=== PATIENT | male | born 1955 | race Caucasian/White ===

== ENCOUNTER 2017-03-05 05:06 | Observation (INO) | payer MEDICARE, OTHER ==
[2017-03-05] VITALS (11 sets, daily range): BP systolic 147–180; BP diastolic 85–119; PULSE 52–72; RESP 16–20; O2SAT 94–99
[~2017-03-05] VITALS: Ht 188 cm; Wt 137.2 kg
[2017-03-05] MEDS ORDERED: Polyethylene Glycol (PEG) 17 Gm Powder PO PRN ×2 (06:00→08:25)
[2017-03-05] MEDS ORDERED: Alum-Mag Hydrox-Simeth 30 mL Suspension PO PRN ×2 (06:00→08:25)
[2017-03-05] MEDS ORDERED: Ondansetron 2 mg/mL 2 mL Inj IVPUSH PRN ×2 (06:00→08:25)
--- NOTE | 2017-03-05 06:29 | NUR ---
Admit Patient admitted to [facility] at 0530. A&Ox3, DELMI, reporting chronic generalized pain for which he takes medical marijuana at home. Patient also reporting a new onset chest and upper back discomfort that he associates with his a-fib. Tele: a-fib with ventricular rates 50-60s. Admit documentation completed; patient denies home meds other than "medical marijuana and ibuprofen."
[2017-03-05 06:47] LABS: BASOPHILS % (AUTO) 0.2 % (0-3); EOSINOPHILS % (AUTO) 0.3 % (0-5); MONOCYTES % (AUTO) 10.5 % (4-12); Mean Corpuscular Hemoglobin 30.4 pg (27.0-35.0); Mean Corpuscular Volume 87.2 fL (81-100); NEUTROPHILS % (AUTO) 75.9 % (40-74); Platelet Count 172 bil/L (150-400)
[2017-03-05 07:10] LABS: Magnesium 2.1 mg/dL (1.6-2.6); TROPONIN T 0.023 ug/L (0.0-0.011)
[2017-03-05] MEDS: Heparin 5,000 Unit/mL Inj SUBQ SCH ×2 (08:59→17:14)
[2017-03-05] MEDS: HYDROcodone-APAP 5-325 mg Tablet PO PRN ×2 (08:59→19:55)
[2017-03-05 09:55] LABS: TROPONIN T 0.022 ug/L (0.0-0.011)
--- NOTE | 2017-03-05 12:30 | DRSVH ---
[facility] [address] [place] [address] Echocardiogram Report Name: ANNA SCHMID WStudy Date: 03/05/2017 Height: 74 in Hospital Exam Location: [facility] Weight: 355 lb Gender: Male BSA: 2.8 m2 : 1955 Age: 61 yrs BP: 175/106 mmHg Reason For Study: Atrial fibrillation Ordering Physician: HOSPITALIST SVerformed By: Peyman Vee Referring Physician: JOAQUIM REYNA Interpretation Summary Left ventricular wall thickness is mildly increased. Left ventricular systolic function is normal without focal wall motion abnormalities. The ejection fraction is estimated to be 55-60%. Septal motion is consistent with conduction abnormality. The right ventricle grossly appears normal in size with probable normal systolic function. The right ventricular systolic pressure is estimated at 29 mmHg assuming a right atrial pressure of 8 mm Hg. The left atrium is moderately dilated. Right atrial size is normal. There is no significant valvular heart disease. The ascending aorta is moderately enlarged. The aortic arch is at the upper limits of normal in size. Procedure: A two-dimensional transthoracic echocardiogram with color flow and Doppler was performed. The study quality was technically difficult. A contrast injection of Definity was performed to improve assessment of LV function. There is no prior echocardiogram noted for this patient. The patient was in atrial fibrillation with heart rates between 50-58 bpm during the exam. Left Ventricle: The left ventricle is normal in size. Left ventricular wall thickness is mildly increased. Left ventricular systolic function is normal without focal wall motion abnormalities. The ejection fraction is estimated to be 55-60%. Septal motion is consistent with conduction abnormality. Diastolic function could not be accurately assessed due to atrial fibrillation. Right Ventricle: The right ventricle grossly appears normal in size with probable normal systolic function. Atria: The left atrium is moderately dilated. Right atrial size is normal. The interatrial septum is intact with no evidence for an atrial septal defect. Mitral Valve: The mitral valve is grossly normal. There is trace mitral regurgitation. Aortic Valve: The aortic valve is not well visualized. There is no hemodynamically significant valvular aortic stenosis. No aortic regurgitation is present. Tricuspid Valve: The tricuspid valve is not well visualized, but is grossly normal. There is mild tricuspid regurgitation. The right ventricular systolic pressure is estimated at 29 mmHg assuming a right atrial pressure of 8 mm Hg. Pulmonic Valve: The pulmonic valve is not well visualized. There is no significant valvular heart disease. Great Vessels: The aortic root is normal size. The ascending aorta is moderately enlarged. The aortic arch is at the upper limits of normal in size. The pulmonary artery is not well visualized, but is probably normal size. The IVC is dilated (diameter is greater than 2.1 cm) yet it collapses greater than 50% with a sniff. This suggests a right atrial pressure of 8 mm Hg. Pericardium/ Pleura There is no pericardial effusion. There is no pleural effusion. MMode/2D Measurements & Calculations LVIDd: 5.7 cm RA long axis Ao root diam LVIDs: 4.1 cm LA A2 area: 27.5 cm FS: 27.3 % LA A4 area: 39.1 cm RA area asc Aorta Diam EPSS: 0.55 cm LA length (vol) IVSd: 1.2 cm : 22.5 cm Ao Arch Diam (Prox LVPWd: 1.2 cm LA vol: 115.7 ml RA vol Trans): 3.4 cm LA vol index : 63.3 ml RA : 22.8 mm2 IVC diam: 2.4 cm LV dow. diameter/BSA LV sys. diameter/BSA (cm/m^2): 2.1 (cm/m^2): 1.5 Doppler Measurements & Calculations Ao V2 max MV E max carlos TR max carlos Ao V2 mean : 136.2 cm/sec : 89.6 cm/sec : 226.6 cm/sec : 96.4 cm/sec Ao max P.4 mmHg TR max PG Ao V2 VTI: 25.1 cm Ao mean P.1 mmHg : 20.6 mmHg LVOT Max Carlos : 108.5 cm/sec sev ratio: 0.75 LV V1 max PG LV V1 VTI: 18.9 cm Reading Physician:SUSANA
--- NOTE | 2017-03-05 15:45 | PCM.HPMED ---
Subjective Date of Service Mar 05, 2017 Primary Provider: Admitting Physician: Taylor Stevenson DO Primary Care Physician: Zion Rios MD Attending Physician: Joel Portillo MD Admit Status: Direct Admit, 23-Hour Observation, [facility] Telemetry Chief Complaint: Bradycardia History of Present Illness: This is a pleasant 61-year-old gentleman with a fairly unremarkable past history who is a blood pressure machine that he uses at home to monitor blood pressure. He is on no blood pressure medications. This machine also gives a heart rate. The patient presented to the ER because of acute on chronic entire body pain which relates to muscle skeletal pain which she attributes to his long history of heavy labor. The patient also came in because of her bradycardia. He saw a low number on his machine. He did not have any other symptoms including lightheadedness, palpitations, or syncope. He is otherwise been in his normal health recently and denies any dehydration, nausea, vomiting , diarrhea. His by mouth intake has been about normal. A cascade in the emergency department he was found to be bradycardic and in atrial fibrillation. It is unclear and unknown if his atrial fibrillation is chronic. The patient initially had a heart rate of 42. This did increase to about 60 with ambulation. His other vital signs were normal in the ER including a blood pressure of 137/80. Review of Systems: All else reviewed and otherwise unremarkable except as noted in history of present illness Allergies Coded Allergies: penicillin (Verified Allergy, Unknown, rash, and break out, 05/05/15) Home Medications None PMH Obesity Chronic back pain Chronic shoulder and lower extremity pain. Family History Negative for atrial fibrillation. His father did have coronary artery disease and multiple myocardial infarctions. Social History Occupation: retired Hx Alcohol Use: No Hx Substance Use: No (medical cannabis) Smoking Status: Unknown if Ever Smoker Living Arrangement: with Family Additional Information Uses recreational marijuana Exam Vital Signs Vital Sign - Last Date Time Temp Pulse Resp B/P Pulse Ox O2 Delivery O2 Flow Rate FiO2 03/05/17 12:26 36.7 52 18 172/91 97 Room Air Exam Oriented 3. No distress. Fluent speech. Normal affect. Normal skull. Normal nose and ears. Anicteric sclera, symmetric pupils Oropharynx is unremarkable, no facial droop. Neck is supple, normal thyroid. No adenopathy. Lungs are clear, normal effort rate. Heart is regular without murmur gallop or rub. Abdomen soft, nondistended or tender. Extremities are free of pedal edema. Good radial and pedal pulses. Skin is free of rash, lesions. No petechiae or ecchymosis. Joints are grossly normal. He is a limited range of motion both shoulders and has a lot of repositioning in the hospital bed due to chronic back pain. Cranial nerves are grossly normal. Motor strength is normal in all extremities. Normal muscular tone. Lab and Diagnostics Result Diagram: 03/05/1761203/05/17612 Assessment & Plan #. Atrial fibrillation with bradycardia, POA. The chronicity of this is unclear. The patient's review of his blood pressure device indicates progressive bradycardia over last several months. He is not in any medications that could rate block him. He also does have a left bundle branch block. Plan is to admit observation status and observe his rate and rhythm over the next 24 hours. We will further consult with cardiology pending the results of his telemetry. #. Acute on chronic muscular skeletal pain, POA. We will use Vicodin as needed for pain. Patient is full resuscitation, confirmed the time of admit Patient is admitted observation status with an estimated length of stay of one night. Pain Evaluation: Adequate Pain Control Resuscitation Status: CPR: Attempt Resuscitation Time spent 40 minute Joel Portillo MD Mar 05, 2017 15:45
[2017-03-05] MEDS: 0.9% Sodium Chloride 1,000 ML IV SCH (17:13)
--- NOTE | 2017-03-05 19:41 | NUR ---
BP Pt's BP 175/106 this am, Pt in pain at the time, MD made aware who placed PRN orders for pain medication and instructed to reassess again at next set of VS. Pt received 2 tabs PRN vicodin which was effective in reducing Pt's pain and allowed Pt to nap. Pt's subsequent BPs this shift were: 172/91 and 147/97.
[2017-03-05] MEDS ORDERED: Enalaprilat 1.25 mg/mL 2 mL Inj IVPUSH ONE (19:50)
--- NOTE | 2017-03-05 22:32 | NUR ---
HTN/Anxiety Hypertensive with 178/119, 180/111. Pt reporting pain and requesting for pain. He mentioned he gets anxious as well when he is near "Medical People". aware. Order for Enalapril IV once noted. Pt refused meds for BP despite education. Care notes about medication provided to patient. 2 Vicodin given and rechecked BP 164/98. No changes in Telemetry. Addendum: 03/06/17 at 0510 by JAZZ YOUNG RN Pt expressed that his blood pressure get that high sometimes even at home especially when he is in pain or anxious. He does not take any BP meds regularly. He just wants to take his Vicodin for pain. He mentioned that his pain normally helps bring his pressure down. He mentioned that he smokes Marijuana to also help manage his pain at home. He said that he hasn't smoke Marijuana for two days now. Telemetry Afib HR in 50s with IVCD. Heart rate trend to low 30s during sleep. Pt asymptomatic and denying any discomfort. He mentioned " I didn't feel it I was sleeping".
[2017-03-06] MEDS: HYDROcodone-APAP 5-325 mg Tablet PO PRN ×2 (00:30→04:59)
[2017-03-06] MEDS: Heparin 5,000 Unit/mL Inj SUBQ SCH ×2 (00:31→08:39)
[2017-03-06] MEDS: 0.9% Sodium Chloride 1,000 ML IV SCH ×2 (00:32→11:50)
[2017-03-06 01:00] VITALS: PULSE 55
[2017-03-06 02:38] LABS: Mean Corpuscular Hemoglobin 30.8 pg (27.0-35.0); Mean Corpuscular Volume 87.1 fL (81-100)
[2017-03-06 03:24] VITALS: BP 153/92; PULSE 56; RESP 16; O2SAT 96
[2017-03-06 05:44] VITALS: PULSE 62
[2017-03-06 08:33] VITALS: BP 155/91; PULSE 56; RESP 16; O2SAT 98
--- NOTE | 2017-03-06 09:25 | PCM.DIMED ---
Discharge Instructions Date of Service Mar 06, 2017 Dates of Hospitalization Mar 05, 2017 at 05:24 Discharge Diagnosis Discharge Diagnosis #. Atrial fibrillation with bradycardia, stable. #. Possible hypertension, stable #. Mildly elevated troponin, stable #. Acute on chronic muscular skeletal pain, stable. #. Obesity, stable Diet Discharge Diet: No restrictions Activity Discharge Activity: No restrictions Call your provider Call your provider for: Fever or Chills, Shortness of breath, Chest pain Patient Instructions Patient Instructions See Linnette Nava tomorrow as scheduled . Inquire about cardiology consult, and possible stress test. Joel Portillo MD Mar 06, 2017 09:25
[2017-03-06 09:54] VITALS: PULSE 52
--- NOTE | 2017-03-06 10:58 | NUR ---
Social Work- Initial Assessment/Discharge/Multidisciplinary Rounds Data: See Initial Assessment and DPOA Intervention for additional information. Pt discussed in rounds, pt to discharge home. No SW needs identified in rounds. Pt's insurance is [employer]. Pt's PCP is Jose Dick at the [facility]. Pt's readmit risk score is 0, low risk SW met with pt at bedside regarding discharge plan, pt alert and oriented x3. Pt's capacity for self-care assessed. Pt resides in [place] with his SO and daughter where he is independent at baseline. Pt is independent with ADLs and self-care. No concerns identified. Pt uses no DME and drives. Pt declined DPOA paperwork at bedside. Pt will discharge home with his SO to transport via POV. Pt is agreeable to discharge plan. No concerns related to prescriptions or obtaining follow up. Assessment: Pt who is independent at baseline. Plan: Pt will discharge home with his SO to transport via POV. No discharge needs identified. ROCK Ojeda Addendum: 03/06/17 at 1100 by BRYAN BELTRE SS Amended: Links added.
--- NOTE | 2017-03-06 12:37 | NUR ---
Discharge Pt discharged to home with family at ~1130 today. Pt given discharge educational materials on a fib and chest pain. Pt's IV access D/C'd and intact. Pt instructed to f/u with PCP tomorrow as priorly arranged. Pt verbalized understanding of all discharge instructions. All belongings accompanied Pt at time of discharge.
--- NOTE | 2017-03-06 15:22 | PCM.DC.MED ---
Discharge Summary Date of Service Mar 06, 2017 Dates of Hospitalization Date of Hospital Admission Mar 05, 2017 at 05:24 Date of Discharge: Mar 06, 2017 Providers: Admitting Physician: Taylor Stevenson DO Primary Care Physician: Zion Rios MD Attending Physician: Joel Reyna MD Diagnosis at Time of Discharge Diagnosis at Time of Discharge #. Atrial fibrillation with bradycardia, stable. #. Possible hypertension, stable #. Mildly elevated troponin, stable #. Acute on chronic muscular skeletal pain, stable. #. Obesity, stable Consultations None Procedures ECG 12 Lead Atrial fibrillation with left bundle branch block, heart rate 56 Cardiac Echo Impression Echocardiogram Report Name: ANNA SCHMID WStudy Date: 0 03/05/2017 Height: 74 in Hospital Exam Location: [facility] Weight: 355 lb Gender: Male BSA: 2.8 m2 : 1955 Age: 61 yrs BP: 175/106 mmHg Reason For Study: Atrial fibrillation Ordering Physician: HOSPITALIST SVHPerformed By: Peyman Vee Referring Physician: JOEL REYNA Interpretation Summary Left ventricular wall thickness is mildly increased. Left ventricular systolic function is normal without focal wall motion abnormalities. The ejection fraction is estimated to be 55-60%. Septal motion is consistent with conduction abnormality. The right ventricle grossly appears normal in size with probable normal systolic function. The right ventricular systolic pressure is estimated at 29 mmHg assuming a right atrial pressure of 8 mm Hg. The left atrium is moderately dilated. Right atrial size is normal. There is no significant valvular heart disease. The ascending aorta is moderately enlarged. The aortic arch is at the upper limits of normal in size. Invasive Procedures None Brief History This is a pleasant 61-year-old gentleman with a fairly unremarkable past history who is a blood pressure machine that he uses at home to monitor blood pressure. He is on no blood pressure medications. This machine also gives a heart rate. The patient presented to the ER because of acute on chronic entire body pain which relates to muscle skeletal pain which she attributes to his long history of heavy labor. The patient also came in because of her bradycardia. He saw a low number on his machine. He did not have any other symptoms including lightheadedness, palpitations, or syncope. He is otherwise been in his normal health recently and denies any dehydration, nausea, vomiting , diarrhea. His by mouth intake has been about normal. A cascade in the emergency department he was found to be bradycardic and in atrial fibrillation. It is unclear and unknown if his atrial fibrillation is chronic. The patient initially had a heart rate of 42. This did increase to about 60 with ambulation. His other vital signs were normal in the ER including a blood pressure of 137/80. Hospital Course #. Atrial fibrillation with bradycardia, POA. The chronicity of this is unclear. The patient's review of his blood pressure device indicates progressive bradycardia over last several months. He is not in any medications that could rate block him. He also does have a left bundle branch block. Plan is to admit observation status and observe his rate and rhythm over the next 24 hours. We will further consult with cardiology pending the results of his telemetry. #. Acute on chronic muscular skeletal pain, POA. We will use Vicodin as needed for pain. Patient is full resuscitation, confirmed the time of admit Patient is admitted observation status with an estimated length of stay of one night. Hospital course. This patient was transferred from a skilled emergency department. He presented there because of concern about a slow heart rate noted as blood pressure cuff. His found to be in atrial fibrillation with left bundle heart rate was in the 30s to 40s but would then increase to the 50s. No symptoms of palpitations or syncope. No known history of prior A. fib. Duration of atrial fibrillation was unclear. The patient had a very low level troponin elevation was sent to [facility]. Here an echo was obtained which was unremarkable. His initial ECG revealed a left bundle, atrial fibrillation heart rate of 56. His QT was 474 with a QTC of 450. The patient also was slightly volume depleted with hematocrit of 50 and a slightly low CO2. He was given 1 L of fluid and corrected his hematocrit to 45 and his CO2 normalized. 2 troponins here were for both 0.023. He had no symptoms of chest pain and notes that he has an exercise pattern is consistent and never has dyspnea or chest pain with exertion. Options were discussed with the patient was admitted observation status. These included pulse follow-up as he has an appointment scheduled with his primary care doctor, Dr. Jose Dick at [facility] tomorrow. He was informed to take aspirin until follow-up well. He also was noted to have a borderline blood pressure but notes that he does have a history of whitecoat hypertension. The implications of aspirin versus anticoagulation were discussed with him. The possibility of an outpatient stress test for his mildly elevated troponin was also discussed with him. The patient was comfortable taking all of these issues and following up with Dr. Dick tomorrow for further discussion and planning. Exam Vital Signs (Last) Date Time Temp Pulse Resp B/P Pulse Ox O2 Delivery O2 Flow Rate FiO2 03/06/17 09:54 52 03/06/17 08:33 36.5 16 155/91 98 Room Air Exam Patient was seen and examined on the day of discharge Test 03/05/17 06:13 03/05/17 09:08 03/06/17 02:15 Neutrophils (%) (Auto) 75.9% (40-74) Lymphocytes (%) (Auto) 12.8% (14-46) Monocytes (%) (Auto) 10.5% (4-12) Eosinophils (%) (Auto) 0.3% (0-5) Basophils (%) (Auto) 0.2% (0-3) Magnesium Level 2.1mg/dL (1.6-2.6) Total Bilirubin 0.7mg/dL (0.0-1.2) Aspartate Amino Transf (AST/SGOT) 25U/L (0-50) Alanine Aminotransferase (ALT/SGPT) 12U/L (0-44) Alkaline Phosphatase 47U/L (25-160) Total Protein 6.8g/dL (6.4-8.4) Albumin 4.4g/dL (3.4-5.0) Troponin T 0.022ug/L (0.0-0.011) Thyroid Stimulating Hormone (TSH) 0.506uIU/mL (0.450-4.500) White Blood Count 9.2th/mm3 (3.8-10.1) Red Blood Count 5.52mil/mm3 (4.40-5.80) Hemoglobin 17.0g/dL (13.8-17.2) Hematocrit 48.1% (41.0-50.0) Mean Corpuscular Volume 87.1fL (81-100) Mean Corpuscular Hemoglobin 30.8pg (27.0-35.0) Mean Corpuscular Hemoglobin Concent 35.3% (32.0-37.0) Red Cell Distribution Width 14.1% (12.3-15.4) Platelet Count 176bil/L (150-400) Sodium Level 141mEq/L (134-144) Potassium Level 3.9mEq/L (3.5-5.2) Chloride Level 103mEq/L (97-108) Carbon Dioxide Level 22mmol/L (18-29) Blood Urea Nitrogen 13mg/dL (8-27) Creatinine 0.69mg/dL (0.76-1.27) Estimat Glomerular Filtration Rate 124mL/min (>59) Glucose Level 112mg/dL (60-99) Calcium Level 9.0mg/dL (8.5-10.1) Discharge Medications No Active Prescriptions or Reported Meds Followup Plan Disposition: Home Discharge Diet: No restrictions Discharge Activity: No restrictions Patient Instructions See Linnette Nava tomorrow as scheduled . Inquire about cardiology consult, and possible stress test. Time spent 40 minutes Joel Reyna MD Mar 06, 2017 15:22
== END 2017-03-06 11:30 | disposition home or self-care (01) ==
LOC: PCC 05:24 → INTOOBSV 05:24
PROVIDERS: ADMIT Internal Medicine; ATTEND Hospitalist
DX: I48.91 Unspecified atrial fibrillation (principal); R00.1 Bradycardia, unspecified; R07.89 Other chest pain; R79.89 Other specified abnormal findings of blood chemistry; E66.9 Obesity, unspecified; G89.29 Other chronic pain; M54.9 Dorsalgia, unspecified; M25.519 Pain in unspecified shoulder; F12.10 Cannabis abuse, uncomplicated; Z88.0 Allergy status to penicillin
CPT/HCPCS: 36415; 80048; 80053; 83036; 83735; 84443; 84484; 85025; 85027; 93005; C8929; J1644; J7030; Q9957